=== PATIENT | male | born 1990 | race Caucasian/White ===

== ENCOUNTER 2022-08-04 09:35 | Emergency (ER) | payer BC, SELFPAY ==
--- NOTE | ~2022-08-04 | XR_ITS ---
EXAMINATION: CR X-RAY ANKLE AND FOOT RIGHT CLINICAL INFORMATION: Right ankle foot pain status post rolling injury. COMPARISON: None TECHNIQUE: 3 views each of the right ankle and foot were obtained. An indicator arrow points to the lateral malleolus and dorsum of the midfoot. FINDINGS: The ankle joint and mortise are intact. The tarsal bones are normally aligned. Incidental type I accessory navicular bone. The metatarsals and phalanges are unremarkable. The joint spaces are unremarkable. Mild soft tissue swelling surrounds the ankle. XR/XR ankle RT min 3V IMPRESSION: Mild soft tissue swelling surrounding the ankle without overt acute underlying osseous abnormality.
--- NOTE | ~2022-08-04 | XR_ITS ---
EXAMINATION: XR CALCANEUS, RIGHT CLINICAL INFORMATION: Crush injury. COMPARISON: None TECHNIQUE: Lateral and axial views of the right calcaneus were obtained. FINDINGS: The bones and soft tissues are normal. No fracture. Alignment is anatomic. Joint spaces are maintained. No enthesopathic spurs are evident at the calcaneus. XR/XR calcaneus RT min 2V IMPRESSION: Unremarkable one view right calcaneus.
--- NOTE | ~2022-08-04 | XR_ITS ---
EXAMINATION: CR X-RAY ANKLE AND FOOT RIGHT CLINICAL INFORMATION: Right ankle foot pain status post rolling injury. COMPARISON: None TECHNIQUE: 3 views each of the right ankle and foot were obtained. An indicator arrow points to the lateral malleolus and dorsum of the midfoot. FINDINGS: The ankle joint and mortise are intact. The tarsal bones are normally aligned. Incidental type I accessory navicular bone. The metatarsals and phalanges are unremarkable. The joint spaces are unremarkable. Mild soft tissue swelling surrounds the ankle. XR/XR foot RT min 3V IMPRESSION: Mild soft tissue swelling surrounding the ankle without overt acute underlying osseous abnormality.
[2022-08-04 10:38] VITALS: BP 124/75; PULSE 77; RESP 16; TEMP 35.8; O2SAT 96; BMI 25.8
--- NOTE | 2022-08-04 12:34 | ED.LOWEXIN ---
HPI - Extremity Injury (Lower) General Chief Complaint: Extremity Injury, Lower <NGUYEN Medley Last Filed: 08/04/22 13:51> Stated Complaint: r ankle inj <NGUYEN Medley Last Filed: 08/04/22 13:51> Time Seen by Provider: 08/04/22 10:13 <NGUYEN Medley Last Filed: 08/04/22 13:51> Source: patient <NGUYEN Medley Last Filed: 08/04/22 13:51> Mode of arrival: ambulatory <NGUYEN Medley Last Filed: 08/04/22 13:51> History of Present Illness HPI Narrative: 32-year-old male with no significant past medical history presents to the ED complaining of right foot and ankle pain/ swelling s/p log rolling on foot yesterday and jamming between log and rock. Patient reports he is minimally ambulatory with pain. Denies numbness, tingling, weakness, injury to other area <NGUYEN Medley Last Filed: 08/04/22 13:51> MD complaint: ankle injury and foot injury <NGUYEN Medley Last Filed: 08/04/22 13:51> Onset (ago): hour(s) <NGUYEN Medley Last Filed: 08/04/22 13:51> Related Data Allergies/Adverse Reactions: Allergies Allergy/AdvReac Type Severity Reaction Status Date / Time No Known Allergies Allergy Verified 08/04/22 09:46 <NGUYEN Medley Last Filed: 08/04/22 13:51> Review of Systems Review of Systems: Constitutional: No Fever, No Chills ENT/Mouth: No Ear Pain, No Nasal Congestion, No Sinus Pain, No Hoarseness, No sore throat, No Rhinorrhea, No Swallowing Difficulty Cardiovascular: No Chest Pain, No SOB Respiratory: No Cough, No Sputum Gastrointestinal: No Nausea, No Vomiting, No Abdominal pain Genitourinary: No Dysuria, No Urinary Frequency, No Hematuria, No Flank Pain Musculoskeletal: + joint pain, No Myalgias, + Joint Swelling Skin: No Skin Lesions, No rash Neuro: No Weakness, No Numbness, No Paresthesias <NGUYEN Medley Last Filed: 08/04/22 13:51> Yes all other systems are reviewed and are negative <NGUYEN Medley - Last Filed: 08/04/22 13:51> Constitutional: Constitutional: Reports as per HPI <NGUYEN Medley - Last Filed: 08/04/22 13:51> FOR[facility]LY [facility] Past Medical History Attestation statement: The following information was validated with the patient. <NGUYEN Medley - Last Filed: 08/04/22 13:51> Social History Social History: Social History Advance Directives: No <NGUYEN Medley - Last Filed: 08/04/22 13:51> Physical Exam Vital Signs: Vital Signs: Last Vital Signs Temp 96.4 F L 08/04/22 10:38 Pulse 77 08/04/22 10:38 Resp 16 08/04/22 10:38 BP 124/75 08/04/22 10:38 Pulse Ox 96 08/04/22 10:38 O2 Del Method 08/04/22 10:38 BMI result Body Mass Index 25.8 <NGUYEN Medley - Last Filed: 08/04/22 13:51> Vital Signs: Last Vital Signs Temp 96.4 F L 08/04/22 10:38 Pulse 77 08/04/22 10:38 Resp 16 08/04/22 10:38 BP 124/75 08/04/22 10:38 Pulse Ox 96 08/04/22 10:38 O2 Del Method 08/04/22 10:38 BMI result Body Mass Index 25.8 <Isauro Frazier MD - Last Filed: 08/06/22 01:33> Const: General: cooperative, healthy appearing and no acute distress <NGUYEN Medley - Last Filed: 08/04/22 13:51> Orientation/consciousness: patient oriented x3 <NGUYEN Medley - Last Filed: 08/04/22 13:51> Limitations: no limitations <NGUYEN Medley - Last Filed: 08/04/22 13:51> HEENT: Head: Yes normal to inspection and Yes atraumatic <NGUYEN Medley - Last Filed: 08/04/22 13:51> Ears: hearing grossly normal bilaterally <Lindsey Martniez PA - Last Filed: 08/04/22 13:51> General nose exam: Normal external nose present <NGUYEN Medley - Last Filed: 08/04/22 13:51> Face and sinus: Yes normal facial exam <Lindsey Martinez PA - Last Filed: 08/04/22 13:51> Eyes: General: appearance normal, both eyes and all related structures <Lindsey Martinez PA - Last Filed: 08/04/22 13:51> EOM: EOMs intact bilaterally <Lindsey Martinez PA - Last Filed: 08/04/22 13:51> Neck: Neck: Yes normal visual inspection and Yes no meningeal signs <Lindsey Martinez PA - Last Filed: 08/04/22 13:51> Resp: Effort & Inspection: normal respiratory effort and no respiratory distress <NGUYEN Medley - Last Filed: 08/04/22 13:51> Cardio: Rate: regular rate <Lindsey Martinez PA - Last Filed: 08/04/22 13:51> Peripheral pulses: dorsalis pedis present <NGUYEN Medley - Last Filed: 08/04/22 13:51> Skin: Rashes: no rashes <Lindsey Martinez PA - Last Filed: 08/04/22 13:51> Wounds: no wounds <Lindsey Martinez PA - Last Filed: 08/04/22 13:51> Neuro: General: patient oriented x3, tone normal and no meningeal signs <Lindsey Martinez PA - Last Filed: 08/04/22 13:51> Gait exam (Neuro): Normal gait present <NGUYEN Medley - Last Filed: 08/04/22 13:51> Extrem: Other: right foot and ankle with noted swelling in bilateral ecchymosis diffusely tender to palpation. + heel ecchymosis & tenderness to palpation. Achilles nontender. NV intact <NGUYEN Medley - Last Filed: 08/04/22 13:51> Course Course Course Narrative: XR ankle RT min 3V/XR foot RT min 3V IMPRESSION: Mild soft tissue swelling surrounding the ankle without overt acute underlying osseous abnormality.? > calcaneus x-ray pending, patient will be contacted with positive results. Patient placed in Christian wrap and supplied with Aircast and crutches XR calcaneus RT min 2V IMPRESSION: Unremarkable one view right calcaneus. Results discussed with patient including worrisome signs and symptoms and strict return precautions, and when to return to the emergency department. They verbalized understanding and feel safe for discharge at this time. <NGUYEN Medley - Last Filed: 08/04/22 13:51> Medical Decision Making Medical Decision Making MDM Narrative: 32-year-old male with no significant past medical history presents to the ED complaining of right foot and ankle pain/ swelling s/p log rolling on foot yesterday and jamming between log and rock. on exam vital signs stable, NAD, nontoxic appearing, physical exam as noted above. Concern for fracture versus sprain. Low suspicion for septic joint/arthritis plan: X-rays Please refer to course for remaining clinical decision making, interpretation of labs/imaging results, and discussions with consultants and/or family members. <NGUYEN Medley - Last Filed: 08/04/22 13:51> Differential Diagnosis Differential Diagnoses: The differential diagnosis associated with the presentation includes <NGUYEN Medley - Last Filed: 08/04/22 13:51> as above <NGUYEN Medley - Last Filed: 08/04/22 13:51> Radiology Impression Discussion of test interpretation with radiology: I have reviewed the radiologist's reading. <NGUYEN Medley - Last Filed: 08/04/22 13:51> Prescription Management I considered prescription management with: Pain Medication <NGUYEN Medley - Last Filed: 08/04/22 13:51> Attestation Attending Attestation: I reviewed [employer] REPRESENTATIVE/PA/Resident note, assessment and plan. I agree with the documentation, assessment and plan unless otherwise stated. <Isauro Frazier MD - Last Filed: 08/06/22 01:33> Discharge Plan Discharge Clinical Impression: Ankle sprain and strain <NGUYEN Medley - Last Filed: 08/04/22 13:51> Patient Disposition: Home, Self-Care <NGUYEN Medley - Last Filed: 08/04/22 13:51> Instructions: Ankle Sprain (ED) <NGUYEN Medley - Last Filed: 08/04/22 13:51> Additional Instructions: Your x-ray does not show fracture. Please were Christian wrap and air splint as needed for comfort and stability. Use crutches as needed, bear weight as tolerated. Ice and elevate. Take Tylenol and Motrin for pain/swelling. Follow up with her doctor. <NGUYEN Medley - Last Filed: 08/04/22 13:51> Referrals: [facility] [Provider Group] Physician,None [Primary Care Provider] - <NGUYEN Medley - Last Filed: 08/04/22 13:51> Stand Alone Forms: Work/School Release <NGUYEN Medley - Last Filed: 08/04/22 13:51> Interventions: ED Discharge Assessment Last Done: 08/04/22 13:14 <NGUYEN Medley - Last Filed: 08/04/22 13:51> Discharge Date/Time: 08/04/22 13:15 <NGUYEN Medley - Last Filed: 08/04/22 13:51>
== END 2022-08-04 13:15 | disposition home or self-care (01) ==
PROVIDERS: Emergency Provider Emergency Medicine
DX: S93.401A Sprain of unspecified ligament of right ankle, initial encounter (principal); S96.911A Strain of unspecified muscle and tendon at ankle and foot level, right foot, initial encounter; W23.1XXA Caught, crushed, jammed, or pinched between stationary objects, initial encounter; Y93.9 Activity, unspecified; Y92.9 Unspecified place or not applicable; Y99.9 Unspecified external cause status
CPT/HCPCS: 73610; 73630; 73650; 99283